=== PATIENT | female | born 1995 | race Caucasian/White ===

== ENCOUNTER 2017-06-27 14:20 | Emergency (ER) | payer BC ==
[2017-06-27 15:15] VITALS: BP 118/74
--- NOTE | 2017-06-27 15:25 | UC ---
Throat Pain/Nasal Edson HPI - HPI Summary HPI Summary: 22 year old female presents with sinus pressure. Sinus congestion for one week with headache, cough for 2 days [ End ] - History of Current Complaint Chief Complaint: UCRespiratory Stated Complaint: CONGESTION COUGH Time Seen by Provider: 06/27/17 15:12 Hx Obtained From: Patient Hx Last Menstrual Period: 06/13/17 Onset/Duration: Gradual Onset Severity: Moderate - Allergies/Home Medications Allergies/Adverse Reactions: Allergies Allergy/AdvReac Type Severity Reaction Status Date / Time Amoxicillin Allergy Unknown Verified 06/27/17 15:15 Reaction Details Home Medications: Home Medications Amphetamine-Dextroamphetamine [Adderall 30 mg-] 1 tab PO DAILY 06/27/17 [ History Confirmed 06/27/17] Norethindrone Acetate-Ethinyl [Lo Loestrin Fe 1 mg-10 Mcg / 10 Mcg] 1 tab PO QPM 06/27/17 [History Confirmed 06/27/17] PMH/Surg Hx/FS Hx/Imm Hx Previously Healthy: Yes - Surgical History Surgical History: Yes Surgery Procedure, Year, and Place: tear ducts as - Family History Known Family History: Positive: None - Social History Occupation: Student Lives: Dormitory/Roommates Alcohol Use: Occasionally Substance Use Type: None Smoking Status (MU): Never Smoked Tobacco Review of Systems ENT: Sinus Congestion, Sinus Pain/Tenderness All Other Systems Reviewed And Are Negative: Yes Physical Exam Triage Information Reviewed: Yes Appearance: Well-Appearing, No Pain Distress, Well-Nourished Vital Signs: Initial Vital Signs Temp 99.3 F 06/27/17 15:08 Pulse 98 06/27/17 15:08 Resp 24 06/27/17 15:08 BP 118/74 06/27/17 15:08 Pulse Ox 100 06/27/17 15:08 Vital Signs Reviewed: Yes Eye Exam: Normal ENT Exam: Normal ENT: Positive: Nasal congestion, Other: - b/l maxillary sinus tenderness Dental Exam: Normal Neck exam: Normal Neck: Positive: 1 Respiratory Exam: Normal Cardiovascular Exam: Normal Musculoskeletal Exam: Normal Neurological Exam: Normal Psychological Exam: Normal Skin Exam: Normal Throat Pain/Nasal Course/Dx - Course Course Of Treatment: viral at this time, start suppoertive treatment and start antibiotics if worsened at day 10 or more - Differential Dx/Diagnosis Differential Diagnosis/HQI/PQRI: Pharyngitis, Sinusitis, Tonsillitis, URI Provider Diagnoses: Viral Sinusitis Discharge - Discharge Plan Condition: Good Disposition: HOME Prescriptions: Cefdinir [Cefdinir 300 MG CAP] 300 mg PO BID #20 cap Patient Education Materials: Sinusitis (ED) Referrals: Non Staff,Doctor [Primary Care Provider] - 4 Days (If needed ) Additional Instructions: As we discussed I believe you have a viral sinusitis and I will advise that you use claritin and flonase in the AM and Netti Pot and Benadryl at night time and if your symptoms worsen over the next 3-4 days then at that time you are advised to start the antibiotics to prevent your symptoms from worsening.
== END 2017-06-27 15:42 | disposition home or self-care (01) ==
LOC: UCCORT 14:20
DX: J32.8 Other chronic sinusitis (principal); Z88.1 Allergy status to other antibiotic agents
CPT/HCPCS: 99212; G0463

== ENCOUNTER 2017-07-15 12:40 | Emergency (ER) | payer BC ==
[2017-07-15 13:08] VITALS: BP 125/80
--- NOTE | 2017-07-15 13:26 | UC ---
Throat Pain/Nasal Edson HPI - HPI Summary HPI Summary: 22 yo female with 2 day hx of sore throat no fever sl headache no n/v/d no myalgias - History of Current Complaint Chief Complaint: UCRespiratory Stated Complaint: ACHES,SORE THROAT Time Seen by Provider: 07/15/17 13:02 Hx Obtained From: Patient Hx Last Menstrual Period: 07/05/17 Onset/Duration: Gradual Onset, Lasting Days Severity: Moderate Pain Intensity: 4 Pain Scale Used: 0-10 Numeric Cough: None - Epiglottits Risk Factors Epiglottis Risk Factors: Negative - Allergies/Home Medications Allergies/Adverse Reactions: Allergies Allergy/AdvReac Type Severity Reaction Status Date / Time Amoxicillin Allergy Unknown Verified 07/15/17 13:08 Reaction Details PMH/Surg Hx/FS Hx/Imm Hx Previously Healthy: Yes - Surgical History Surgical History: Yes Surgery Procedure, Year, and Place: tear ducts as infant - Family History Known Family History: Positive: Hypertension - Social History Alcohol Use: Occasionally Substance Use Type: None Smoking Status (MU): Never Smoked Tobacco Review of Systems Constitutional: Negative Skin: Negative Eyes: Negative ENT: Sore Throat Respiratory: Negative Cardiovascular: Negative Gastrointestinal: Negative Genitourinary: Negative Motor: Negative Neurovascular: Negative Musculoskeletal: Negative Neurological: Negative Psychological: Negative Is Patient Immunocompromised?: No All Other Systems Reviewed And Are Negative: Yes Physical Exam Triage Information Reviewed: Yes Appearance: Well-Appearing, No Pain Distress, Well-Nourished Vital Signs: Initial Vital Signs Temp 98.5 F 07/15/17 13:05 Pulse 107 07/15/17 13:05 Resp 16 07/15/17 13:05 BP 125/80 07/15/17 13:05 Pulse Ox 100 07/15/17 13:05 Vital Signs Reviewed: Yes ENT: Positive: Hearing grossly normal. Negative: Nasal congestion, Nasal drainage, Trismus, Muffled/hoarse voice Neck: Positive: Supple, Nontender, No Lymphadenopathy Respiratory: Positive: Lungs clear, Normal breath sounds, No respiratory distress, No accessory muscle use Cardiovascular: Positive: RRR, No Murmur Musculoskeletal: Positive: ROM Intact, No Edema Neurological: Positive: Alert Psychological Exam: Normal Skin Exam: Normal Throat Pain/Nasal Course/Dx - Course Course Of Treatment: strep test (+) - Differential Dx/Diagnosis Provider Diagnoses: strep throat Discharge - Discharge Plan Condition: Stable Disposition: HOME Prescriptions: Cephalexin CAP* [Keflex CAP*] 500 mg PO BID #20 cap Patient Education Materials: Strep Throat (ED) Referrals: Non Staff,Doctor [Primary Care Provider] - Additional Instructions: tylenol or advil for pain recheck in 2-3 days if not better
== END 2017-07-15 13:33 | disposition home or self-care (01) ==
LOC: UCCORT 12:40
DX: J02.0 Streptococcal pharyngitis (principal)
CPT/HCPCS: 87651; 99212; G0463

== ENCOUNTER 2018-07-29 10:38 | Emergency (ER) | payer BC ==
[2018-07-29 10:53] VITALS: BP 127/77
--- NOTE | 2018-07-29 11:02 | UC ---
Throat Pain/Nasal Edson HPI - HPI Summary HPI Summary: sore throat x 2 days cold symptoms with nasal congestion , cough for the past one week + fever, chills, body aches recent exposure to strep - History of Current Complaint Chief Complaint: UCGeneralIllness Stated Complaint: SORE THROAT,ACHES,COUGH Time Seen by Provider: 07/29/18 10:46 Hx Obtained From: Patient Hx Last Menstrual Period: 07/29/18 ?: No Onset/Duration: Gradual Onset, Lasting Days - 2, Still Present Severity: Moderate Pain Intensity: 5 Cough: Nonproductive Associated Signs & Symptoms: Positive: Nasal Discharge, Fever. Negative: Dysphagia, FB Sensation, Drooling, Wheezing, Hoarseness, Sinus Discomfort, Rash - Allergies/Home Medications Allergies/Adverse Reactions: Allergies Allergy/AdvReac Type Severity Reaction Status Date / Time amoxicillin Allergy Unknown Verified 07/29/18 10:50 Reaction Details Home Medications: Home Medications Norethindrone AC-Eth Estradiol [Loestrin 11/02- 1-20 mg-Mcg] 1 tab PO DAILY [History Confirmed 07/29/18] PMH/Surg Hx/FS Hx/Imm Hx Previously Healthy: Yes - Surgical History Surgical History: Yes Surgery Procedure, Year, and Place: tear ducts as - Family History Known Family History: Positive: Hypertension - Social History Alcohol Use: Occasionally Substance Use Type: None Smoking Status (MU): Never Smoked Tobacco Review of Systems Constitutional: Fever, Chills, Fatigue Skin: Negative Eyes: Negative ENT: Sore Throat, Nasal Discharge Respiratory: Cough Cardiovascular: Negative Is Patient Immunocompromised?: No All Other Systems Reviewed And Are Negative: Yes Physical Exam Triage Information Reviewed: Yes Appearance: Well-Appearing, No Pain Distress, Well-Nourished Vital Signs: Initial Vital Signs Temp 98.7 F 07/29/18 10:48 Pulse 77 07/29/18 10:48 Resp 14 07/29/18 10:48 BP 127/77 07/29/18 10:48 Pulse Ox 100 07/29/18 10:48 Vital Signs Reviewed: Yes Eye Exam: Normal Eyes: Positive: Conjunctiva Clear ENT: Positive: Normal ENT inspection, Hearing grossly normal, Pharyngeal erythema, Nasal drainage, TMs normal Neck: Positive: Supple, Nontender, No Lymphadenopathy Respiratory: Positive: Chest non-tender, Lungs clear, Normal breath sounds, No respiratory distress Cardiovascular: Positive: RRR, No Murmur, Pulses Normal Skin Exam: Normal Throat Pain/Nasal Course/Dx - Differential Dx/Diagnosis Provider Diagnoses: viral pharyngitis Discharge - Sign-Out/Discharge Documenting (check all that apply): Patient Departure All imaging exams completed and their final reports reviewed: No Studies - Discharge Plan Condition: Stable Disposition: HOME Patient Education Materials: Pharyngitis (ED) Referrals: No Primary Care Phys,NOPCP [Primary Care Provider] - If Needed - Billing Disposition and Condition Condition: STABLE Disposition: Home
== END 2018-07-29 11:31 | disposition home or self-care (01) ==
LOC: UCCORT 10:38
DX: J02.9 Acute pharyngitis, unspecified (principal); Z88.1 Allergy status to other antibiotic agents
CPT/HCPCS: 87651; 99211; G0463